=== PATIENT | female | born 1985 | race African-American/Black ===

== ENCOUNTER 2021-10-22 11:12 | Emergency (ER) | payer BC ==
[~2021-10-22] VITALS: Ht 165.1 cm; Wt 81.7 kg
[2021-10-22 12:07] LABS: ABSOLUTE NEUTROPHILS 2.9 thou/uL (1.4-8.2); BASOPHILS 0.5 % (0.0-2.0); EOSINOPHILS 0.6 % (0.0-3.0); HEMATOCRIT 34.7 % (37.0-47.0); HEMOGLOBIN 11.4 gm/dL (12.0-15.0); LYMPHOCYTES 9.3 % (24.0-44.0); MCH 28.1 pg (26.0-34.0); MCV 85.1 fL (80.0-100.0); PLATELET COUNT 337 thou/uL (150-400); POLYS 77.6 % (36.0-66.0); RBC 4.07 mil/uL (4.20-5.00); RDW 14.2 % (10.5-14.5); WBC 3.8 thou/uL (4.0-11.0)
[2021-10-22 12:12] LABS: CALCIUM 9.1 mg/dL (8.5-10.1); CREATININE 0.7 mg/dL (0.6-1.0); POTASSIUM 3.9 mmol/L (3.5-5.1)
[2021-10-22 12:22] LABS: ALBUMIN 3.9 g/dL (3.4-5.0); TOTAL BILIRUBIN 0.9 mg/dL (0.2-1.0); TOTAL PROTEIN 7.3 g/dL (6.4-8.2)
[2021-10-22 12:35] VITALS: BP 110/62
--- NOTE | 2021-10-23 12:58 | EKG ---
[address] [address] ELECTROCARDIOGRAM REPORT Name: ANTONY TAI Room #: [facility] Lorenzana#: [id number] Admission: 10/22/21 Attend Phys: Discharge: 10/22/21 Date of : 83 Report #: [id number] [facility] ED Test Date: 2021-10-22 Test Time: 11:20:52 Pat Name: ANTONY TAI Department: Room: Gender: F Set Up Inspector: DEVAN : 1985 Requested By: Hayley Bocanegra Order Number: [id number] MD: Manuel Camejo Measurements Intervals [place] Rate: 89 P: 77 AL: 152 QRS: 75 QRSD: 82 T: 43 QT: 349 QTc: 425 Interpretive Statements Sinus rhythm No previous ECG available for comparison Electronically Signed On 10-23-2021 12:58:01 BUSSER by Manuel Camejo [email or web address] <ELECTRONICALLY SIGNED> By: Manuel Camejo MD, [facility] 10/23/21 1258 1120 1120 Manuel Camejo MD, FACC /EPI
== END 2021-10-22 12:35 | disposition home or self-care (01) ==
LOC: ER 11:12
PROVIDERS: Nurse Practitioner
DX: U07.1 COVID-19 (principal); Z88.0 Allergy status to penicillin